=== PATIENT | male | born 1995 | race Caucasian/White ===

== ENCOUNTER → 2022-11-12 | Outpatient (CLI) | payer OTHER, SELFPAY ==
--- NOTE | 2022-11-12 10:58 | ECHOD_ITS ---
Reason For Study: ATRIAL PREMATURE DEPOLARIZATION Procedure This was a 2D Doppler, Color Flow transthoracic echocardiogram. Exam performed in department. Left Ventricle Normal LV size. Left ventricular systolic function is normal. The estimated ejection fraction is 60 %. Normal diastology for age. No regional wall motion abnormalities noted. Right Ventricle Normal RV size. Normal systolic function. Atria Normal left atrium. Normal right atrium. Mitral Valve Normal mitral valve. Tricuspid Valve Normal tricuspid valve. Aortic Valve Normal aortic valve. Trisinus/trileaflet aortic valve. Pulmonic Valve Normal pulmonic valve. Great Vessels Normal aortic root. The pulmonary artery is normal size. Normal inferior vena cava. Pericardium/Pleural No pericardial effusion. MMode/2D Measurements & Calculations LVIDd: 5.5 cm IVSd: 0.94 cm Ao root diam: 3.1 cm LVIDs: 3.3 cm LVPWd: 1.0 cm RVDd: 4.0 cm FS: 39.9 % LAV(MOD-bp): 66.6 ml LVAd ap4: 37.2 cm2 LVAd ap2: 33.4 cm2 LAV(MOD-bp) Indexed: 27.9 ml/m2 LVLd ap4: 9.2 cm LVLd ap2: 9.0 cm LAV(MOD-sp2): 65.2 ml EDV(MOD-sp4): 122.5 ml EDV(MOD-sp2): 113.3 ml LAV(MOD-sp4): 66.2 ml EDV(sp4-el): 127.3 ml EDV(sp2-el): 104.7 ml LVAs ap4: 21.7 cm2 LVAs ap2: 19.7 cm2 LVLs ap4: 7.6 cm LVLs ap2: 7.7 cm ESV(MOD-sp4): 52.5 ml ESV(MOD-sp2): 45.7 ml ESV(sp4-el): 52.5 ml ESV(sp2-el): 42.9 ml EF(MOD-sp4): 57.1 % EF(MOD-sp2): 59.7 % EF(sp4-el): 58.8 % SV(MOD-sp4): 70.0 ml SV(MOD-sp2): 67.6 ml SV(sp4-el): 74.8 ml LA dimension(2D): 3.6 cm LA A4 area: 21.3 cm2 RA A4 area: 17.2 cm2 Time Measurements MV dec time: 0.20 sec Doppler Measurements & Calculations MV E max jan: 97.0 cm/sec Lat Peak E' Jan: 21.1 cm/sec Med Peak E' Jan: 15.4 cm/sec MV A max jan: 48.9 cm/sec E/E' lat: 4.6 E/E' med: 6.3 MV E/A: 2.0 MV V2 max: 110.3 cm/sec MV P1/2t max jan: 108.9 cm/sec Ao V2 max: 138.2 cm/sec MV max P.9 mmHg MV P1/2t: 62.7 msec Ao max P.6 mmHg MV V2 mean: 70.0 cm/sec MV dec slope: 508.8 cm/sec2 Ao V2 mean: 95.6 cm/sec MV mean P.2 mmHg Ao mean P.2 mmHg MV V2 VTI: 21.1 cm MVA(P1/2t): 3.5 cm2 Ao V2 VTI: 27.1 cm AV (velocity ratio): 0.88 LV V1 max: 128.6 cm/sec PA V2 max: 105.7 cm/sec LV V1 max P.6 mmHg PA V2 mean: 78.4 cm/sec LV V1 mean P.9 mmHg LV V1 mean: 94.1 cm/sec LV V1 VTI: 23.9 cm ECHO/Echo Complete Interpretation Summary Normal LV size. Left ventricular systolic function is normal. The estimated ejection fraction is 60 %. Normal diastology for age. Structurally normal valves. Ordering Physician: Mimi Miguel Referring Physician: Mimi Miguel Performed By: Komal Westfall RDCS, RVT
== END | disposition home or self-care (01) ==
LOC: CVS 10:57
PROVIDERS: PCP Family Medicine; Referring Provider Family Medicine; Visit Provider Family Medicine
DX: I49.1 Atrial premature depolarization (principal)
CPT/HCPCS: 93306